=== PATIENT | female | born 1970 | race Caucasian/White ===

== ENCOUNTER 2024-11-19 07:51 | Day surgery (SDC) | payer OTHER ==
[~2024-11-19] VITALS: Ht 152.4 cm; Wt 53.1 kg
[~2024-11-19 07:51] MED LIST: ACET-683 PO; AMOX500C PO; BENZ200C70 PO; CETI-24 PO; CIPR-249 PO; CLEO300C2 PO; FLON1SPR NARES; IBUP-1022 PO; IBUP1TAB7 PO; IBUP80TA PO; KETO10TAB PO; LIDOCAINE W/EPINEPHRINE 1% 20ML VIAL XX ONE; METH-1164 PO; NAPR-837 PO; OSEL75CA PO; OXYM15SP2; PERC5TAB12 PO; POLYSOL OP; PROAAER10 INH; SODIUM BICARBONATE 8.4% INJ 50MEQ 50ML VIAL XX ONE; SUBO8MIS; TESS100C PO; TYLE500T78 PO; ULTR50TA8 PO
[2024-11-19] MEDS: BACITRACIN OINTMENT 30GM TUBE As Ordered ONE (09:55)
[2024-11-19 10:11] VITALS: BP 103/51; TEMP 97.6; O2SAT 98
== END 2024-11-19 10:20 | disposition home or self-care (01) ==
LOC: M SDC 07:51 → MERGE 10:15 → M SDC 10:20
PROVIDERS: ATTEND Orthopaedic Surgery Hand Surgery
DX: M65.312 Trigger thumb, left thumb (principal); Z68.42 Body mass index [BMI] 45.0-49.9, adult; Z88.5 Allergy status to narcotic agent; Z87.891 Personal history of nicotine dependence